=== PATIENT | female | born 1995 | race Caucasian/White ===

== ENCOUNTER 2017-01-18 22:48 | Emergency (ER) | payer MEDICAID ==
[2017-01-18 23:04] VITALS: BP 121/75
--- NOTE | 2017-01-18 23:22 | EDM.PDOC ---
ED HPI GENERAL MEDICAL PROBLEM - General Chief Complaint: Gastrointestinal Problem Stated Complaint: BLEEDING Time Seen by Provider: 01/18/17 22:58 Source of Information: Reports: Patient, Family History Limitations: Reports: No Limitations - History of Present Illness INITIAL COMMENTS - FREE TEXT/NARRATIVE: Pt had a rectal bleed at work today, she has hemorrhoids for 3 years pt refuded rectal exam, no N/V/D or dizziness or any other acute medical issues Onset: Unknown/Unsure Onset Date: 01/18/17 Onset Time: 17:00 Duration: Intermittent Location: Reports: Other (rectal bleed) Quality: Reports: Other (no pain, 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) Improves with: Reports: None Worsens with: Reports: None Context: Reports: Other (Hemmorrhides for 3 years) Associated Symptoms: Reports: No Other Symptoms Rectal Pain Score (Numeric/FACES): 6 - Related Data Allergies Allergy/AdvReac Type Severity Reaction Status Date / Time latex Allergy Redness Verified 01/18/17 22:57 Home Meds: Home Meds NK [No Known Home Meds] 01/18/17 [History] Past Medical History Gastrointestinal History: Reports: 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: Social & Family History - Tobacco Use Smoking Status *Q: Current Every Day Smoker Years of Tobacco use: 4 Packs/Tins Daily: 1 - Caffeine Use Caffeine Use: Reports: Coffee - Recreational Drug Use Recreational Drug Use: Yes Recreational Drug Type: Reports: Marijuana/Hashish Recreational Drug Use Frequency: Monthly ED ROS GENERAL - Review of Systems Review Of Systems: See Below Constitutional: Reports: No Symptoms HEENT: Reports: No Symptoms Respiratory: Reports: No Symptoms Cardiovascular: Reports: No Symptoms Endocrine: Reports: No Symptoms GI/Abdominal: Reports: No Symptoms : Reports: No Symptoms Musculoskeletal: Reports: No Symptoms Skin: Reports: No Symptoms Neurological: Reports: No Symptoms Psychiatric: Reports: No Symptoms Hematologic/Lymphatic: Reports: No Symptoms Immunologic: Reports: No Symptoms ED EXAM, GI/ABD - Physical Exam Exam: See Below Exam Limited By: No Limitations General Appearance: Alert, WD/WN, No Apparent Distress Eyes: Bilateral: Normal Appearance Ears: Normal External Exam Nose: Normal Inspection Throat/Mouth: Normal Inspection, Normal Lips, Normal Teeth, Normal Gums Head: Atraumatic, Normocephalic Neck: Normal Inspection, Supple, Non-Tender, Full Range of Motion Respiratory/Chest: No Respiratory Distress, Lungs Clear, Normal Breath Sounds Cardiovascular: Normal Peripheral Pulses, Regular Rate, Rhythm GI/Abdominal Exam: Other (refused rectal exam) (Female) Exam: Deferred Rectal (Female) Exam: Deferred (pt refused rectal exam) Back Exam: Normal Inspection Extremities: Normal Inspection Neurological: Alert, Oriented, CN II-XII Intact Psychiatric: Normal Affect Skin Exam: Warm, Dry, Intact Lymphatic: No Adenopathy Course - Vital Signs Text/Narrative:: Pt had a rectal bleed at work today, she has hemorrhoids for 3 years pt refused rectal exam, no N/V/D or dizziness or any other acute medical issues Pt refused rectal exam here in the ed. Plan: D/c home with F/U Last Recorded V/S: Last Vital Signs Temp 35.9 C 01/18/17 22:58 Pulse 92 01/18/17 22:58 Resp 14 01/18/17 22:58 BP 121/75 01/18/17 22:58 Pulse Ox 99 01/18/17 22:58 Departure - Departure Time of Disposition: 23:21 Disposition: Home, Self-Care 01 Condition: Good Clinical Impression: Bleeding external hemorrhoids - Discharge Information Referrals: Ernesto Basilio MD [Physician] - PCP,None [Primary Care Provider] - Forms: ED Department Discharge, ED Return to Work/School Form Additional Instructions: Please call Dr. Basilio in am for a clinic f/u, come back if worse.
== END 2017-01-18 23:30 | disposition home or self-care (01) ==
LOC: FB.ED 22:48
DX: K64.4 Residual hemorrhoidal skin tags (principal); F17.210 Nicotine dependence, cigarettes, uncomplicated; Z91.040 Latex allergy status
CPT/HCPCS: 99284

== ENCOUNTER 2017-03-01 14:16 | Emergency (ER) | payer BC ==
--- NOTE | 2017-03-01 14:39 | EDM.PDOC ---
ED HPI GENERAL MEDICAL PROBLEM - General Chief Complaint: Gastrointestinal Problem Stated Complaint: vomiting Time Seen by Provider: 03/01/17 14:16 Source of Information: Reports: Patient, Family History Limitations: Reports: No Limitations - History of Present Illness INITIAL COMMENTS - FREE TEXT/NARRATIVE: 21 y.o.w.f came to the ed due to painful defecation for >4 weeks, She has occ blood in her stool as well. No N/V/D or any other acute medical issues. Denied . BP 119/81 puls 81 Temp 36.4 RR 16 Pulse ox 100% Onset: Unknown/Unsure Onset Date: 02/02/17 Onset Time: 07:00 Duration: Day(s): Location: Reports: Abdomen Quality: Reports: Dull Severity: Mild Improves with: Reports: Rest Worsens with: Reports: Other (bowel movements) Context: Reports: Other Associated Symptoms: Reports: No Other Symptoms Right Upper Abdomen Pain Score (Numeric/FACES): 6 - Related Data Allergies Allergy/AdvReac Type Severity Reaction Status Date / Time acetaminophen Allergy Liver Verified 03/02/17 11:05 Problems latex Allergy Rash Verified 03/01/17 14:24 vancomycin Allergy Redness Verified 03/01/17 14:24 Home Meds: Home Meds NK [No Known Home Meds] 01/18/17 [History] Past Medical History Gastrointestinal History: Reports: 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: Social & Family History - Tobacco Use Smoking Status *Q: Current Every Day Smoker Years of Tobacco use: 4 Packs/Tins Daily: 1 - Caffeine Use Caffeine Use: Reports: Coffee - Recreational Drug Use Recreational Drug Use: Yes Recreational Drug Type: Reports: Marijuana/Hashish Recreational Drug Use Frequency: Monthly ED ROS GENERAL - Review of Systems Review Of Systems: See Below Constitutional: Reports: No Symptoms HEENT: Reports: No Symptoms Respiratory: Reports: No Symptoms Cardiovascular: Reports: No Symptoms Endocrine: Reports: No Symptoms GI/Abdominal: Reports: Abdominal Pain : Reports: No Symptoms Musculoskeletal: Reports: No Symptoms Skin: Reports: No Symptoms Neurological: Reports: No Symptoms Psychiatric: Reports: No Symptoms Hematologic/Lymphatic: Reports: No Symptoms Immunologic: Reports: No Symptoms ED EXAM, GI/ABD - Physical Exam Exam: See Below Exam Limited By: No Limitations General Appearance: Alert, WD/WN, No Apparent Distress Eyes: Bilateral: Normal Appearance Ears: Normal External Exam Nose: Normal Inspection Throat/Mouth: Normal Inspection Head: Atraumatic, Normocephalic Neck: Normal Inspection, Supple Respiratory/Chest: No Respiratory Distress Cardiovascular: Normal Peripheral Pulses, Regular Rate, Rhythm GI/Abdominal Exam: Normal Bowel Sounds, Soft, Other (painful defacation ) (Female) Exam: Deferred Rectal (Female) Exam: Deferred Back Exam: Normal Inspection Extremities: Normal Inspection Neurological: Alert, Oriented, CN II-XII Intact, Normal Cognition, Normal Gait Psychiatric: Normal Affect, Normal Mood Skin Exam: Warm, Dry, Intact, Normal Color, No Rash Lymphatic: No Adenopathy Course - Vital Signs Text/Narrative:: 21 y.o.w.f came to the ed due to painful defecation for >4 weeks, She has occ blood in her stool as well. No N/V/D or any other acute medical issues. Denied . BP 119/81 puls 81 Temp 36.4 RR 16 Pulse ox 100% PE: Nl PE Labs: UA for UTI and CBC nl BMP Nl Impression: Hematochezia, painful defecation Tx: None needed in the ed Plan: D/C with instructions Last Recorded V/S: Last Vital Signs Temp 36.7 C 03/01/17 14:20 Pulse 70 03/01/17 16:29 Resp 16 03/01/17 16:29 BP 126/82 03/01/17 16:29 Pulse Ox 100 03/01/17 16:29 - Orders/Labs/Meds Labs: Laboratory Tests 03/01/17 03/01/17 03/01/17 Range/Units 14:35 14:35 14:40 WBC 10.6 (4.5-12.0) X10-3/uL RBC 4.56 (3.23-5.20) x10(6)uL Hgb 13.5 (11.5-15.5) g/dL Hct 39.3 (30.0-51.3) % MCV 86.1 (80-96) fL MCH 29.5 (27.7-33.6) pg MCHC 34.3 (32.2-35.4) g/dL RDW 13.3 (11.5-15.5) % Plt Count 351 (125-369) X10(3)uL MPV 8.2 (7.4-10.4) fL Neut % (Auto) 65.5 (46-82) % Lymph % (Auto) 25.6 (13-37) % [place] % (Auto) 6.1 (4-12) % Eos % (Auto) 2 (1.0-5.0) % Baso % (Auto) 1 (0-2) % Neut # (Auto) 7.0 (1.6-8.3) # Lymph # (Auto) 2.7 (0.6-5.0) # [place] # (Auto) 0.6 (0.0-1.3) # Eos # (Auto) 0.2 (0.0-0.8) # Baso # (Auto) 0.1 (0.0-0.2) # Sodium (135-145) mmol/L Potassium (3.5-5.3) mmol/L Chloride (100-110) mmol/L Carbon Dioxide (23-29) mmol/L BUN (5-20) mg/dL Creatinine (0.6-1.3) mg/dL Est Cr Clr Drug Dosing mL/min Estimated GFR (MDRD) (>60) BUN/Creatinine Ratio (9-20) Glucose (80-116) mg/dL Calcium (8.6-10.2) mg/dL Total Bilirubin (0.1-1.3) mg/dL Direct Bilirubin (0.1-0.2) mg/dL AST (5-27) IU/L ALT (14-26) IU/L Alkaline Phosphatase (56-112) IU/L Total Protein (6.0-8.0) g/dL Albumin (3.5-5.2) g/dL Urine Color Yellow (YELLOW) Urine Appearance Slightly cloudy (CLEAR) Urine pH 8.0 H (5.0-6.5) Ur Specific [place] 1.015 (1.010-1.025) Urine Protein Negative (NEGATIVE) mg/dL Urine Glucose (UA) Normal (NEGATIVE) mg/dL Urine Ketones Negative (NEGATIVE) mg/dL Urine Occult Blood Negative (NEGATIVE) Urine Nitrite Negative (NEGATIVE) Urine Bilirubin Negative (NEGATIVE) Urine Urobilinogen Normal (NEGATIVE) mg/dL Ur Leukocyte Esterase Negative (NEGATIVE) Urine RBC Not seen (0) Urine WBC 0-5 (0) Ur Squamous Epith Cells Moderate H (NS,R,O) Amorphous Sediment Moderate Urine Bacteria Moderate H (NS) Urine HCG, Qual Negative (NEGATIVE) 03/01/17 Range/Units 14:40 WBC (4.5-12.0) X10-3/uL RBC (3.23-5.20) x10(6)uL Hgb (11.5-15.5) g/dL Hct (30.0-51.3) % MCV (80-96) fL MCH (27.7-33.6) pg MCHC (32.2-35.4) g/dL RDW (11.5-15.5) % Plt Count (125-369) X10(3)uL MPV (7.4-10.4) fL Neut % (Auto) (46-82) % Lymph % (Auto) (13-37) % [place] % (Auto) (4-12) % Eos % (Auto) (1.0-5.0) % Baso % (Auto) (0-2) % Neut # (Auto) (1.6-8.3) # Lymph # (Auto) (0.6-5.0) # [place] # (Auto) (0.0-1.3) # Eos # (Auto) (0.0-0.8) # Baso # (Auto) (0.0-0.2) # Sodium 138 (135-145) mmol/L Potassium 3.7 (3.5-5.3) mmol/L Chloride 106 (100-110) mmol/L Carbon Dioxide 27 (23-29) mmol/L BUN 7 (5-20) mg/dL Creatinine 0.8 (0.6-1.3) mg/dL Est Cr Clr Drug Dosing 113.16 mL/min Estimated GFR (MDRD) > 60 (>60) BUN/Creatinine Ratio 8.8 L (9-20) Glucose 107 (80-116) mg/dL Calcium 9.1 (8.6-10.2) mg/dL Total Bilirubin 1.3 (0.1-1.3) mg/dL Direct Bilirubin 0.2 (0.1-0.2) mg/dL AST 14 (5-27) IU/L ALT 12 L (14-26) IU/L Alkaline Phosphatase 49 L (56-112) IU/L Total Protein 6.9 (6.0-8.0) g/dL Albumin 4.1 (3.5-5.2) g/dL Urine Color (YELLOW) Urine Appearance (CLEAR) Urine pH (5.0-6.5) Ur Specific [place] (1.010-1.025) Urine Protein (NEGATIVE) mg/dL Urine Glucose (UA) (NEGATIVE) mg/dL Urine Ketones (NEGATIVE) mg/dL Urine Occult Blood (NEGATIVE) Urine Nitrite (NEGATIVE) Urine Bilirubin (NEGATIVE) Urine Urobilinogen (NEGATIVE) mg/dL Ur Leukocyte Esterase (NEGATIVE) Urine RBC (0) Urine WBC (0) Ur Squamous Epith Cells (NS,R,O) Amorphous Sediment Urine Bacteria (NS) Urine HCG, Qual (NEGATIVE) Departure - Departure Time of Disposition: 16:36 Disposition: Home, Self-Care 01 Condition: Good Clinical Impression: Hematochezia - Discharge Information Referrals: PCP,None [Primary Care Provider] - Logan Lilly MD [Physician] - Forms: ED Department Discharge, ED Return to Work/School Form Additional Instructions: Please follow up with Dr. Lilly as needed. Please come back if your symptoms get worse acutely.
[2017-03-01 16:31] VITALS: BP 126/82
== END 2017-03-01 16:42 | disposition home or self-care (01) ==
LOC: FB.ED 14:16
DX: K92.1 Melena (principal); F17.210 Nicotine dependence, cigarettes, uncomplicated; Z88.1 Allergy status to other antibiotic agents; Z88.6 Allergy status to analgesic agent; Z91.040 Latex allergy status
CPT/HCPCS: 36415; 80048; 80076; 81001; 81025; 85025; 99284

== ENCOUNTER 2017-03-02 10:53 | Emergency (ER) | payer BC ==
[2017-03-02 11:09] VITALS: BP 123/73
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
== END 2017-03-02 13:30 | disposition home or self-care (01) ==
LOC: FB.ED 10:53
DX: Z00.00 Encounter for general adult medical examination without abnormal findings (principal); F17.210 Nicotine dependence, cigarettes, uncomplicated; Z88.1 Allergy status to other antibiotic agents; Z88.6 Allergy status to analgesic agent; Z91.040 Latex allergy status; M54.5 Low back pain
CPT/HCPCS: 72100; 99281

== ENCOUNTER 2017-07-08 12:23 | Emergency (ER) | payer BC ==
[2017-07-08] MEDS ORDERED: Sodium Chloride 0.9% 1,000 ML IV ONE (13:40)
[2017-07-08] MEDS: Ondansetron 4 MG Tab.DIS PO SCH (14:15)
[2017-07-08] MEDS: Dextrose 5%-Lactated Ringers 1,000 ML IV SCH (14:25)
[2017-07-08] MEDS: Sodium Chloride 0.9% 1,000 ML IV SCH ×2 (15:26→17:02)
[2017-07-08 18:04] VITALS: BP 112/75
--- NOTE | 2017-07-11 05:25 | ER ---
DATE SEEN: 07/08/2017 Urinalysis on 07/08/2017, had moderate bacteria and moderate squamous epithelial cells, few mucus. Laboratory have chosen to culture as it met their criteria and the culture has turned out to have 100,000 colonies E. coli. ASSESSMENT: 1. This should be defined as asymptomatic bacteriuria. The Infectious Disease Society of [place] does not sanction use of antibiotics for asymptomatic bacteriuria. 2. Since it appears that this specimen was a soiled specimen with moderate squamous epithelial cells and moderate bacteria noted, the culture is probably factitious and does not require antibiotic treatment. It is remotely possible the patient could get UTI symptoms later that require treatment at later date. At present, I have chosen not to treat the patient with antibiotic because of the above. She will be following with her doctor in a week or less than a week. At that time, we will repeat urinalysis, a good clean-catch urine would be optimal to verify she does not have a urinary tract infection. /[id number] ROBBIE/MIKE ESCOBAR
--- NOTE | 2017-07-12 13:54 | ER ---
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 Last night, she drank 2+ drinks and lost consciousness. She blacked out. She has chronic low back pain. She vomited "50 times since last night." She feels dry. Her chief complaint is "alcohol poisoning." Someone drove her home. She left her home. She had stomach pain, onset approximately 1900 last night. She felt dizzy. No history of pancreatitis. She has had liver failure when she was 18 years old, after a Tylenol overdose. She is worried this might be liver enzyme abnormality. She did not hit her head. No history of upper or lower extremity trauma, neck pain, or head trauma, but she feels that she has headache from drinking so much alcohol last night. CURRENT MEDICATIONS: None. ALLERGIES: Acetaminophen, latex, and vancomycin. PAST MEDICAL HISTORY: Notable for hematochezia and hemorrhoids in January and March of 2017. REVIEW OF SYSTEMS: HEENT: She has a headache. No compromise of vision. No blurry vision. No sinusitis, pharyngitis, or hearing changes. NECK: No neck complaints. LUNGS: No shortness of breath or cough. CHEST: No chest wall pain. HEART: No irregular heartbeat, diaphoresis, or increased weight gain or swelling of the lower extremities. ABDOMEN: As noted above. She had the "vomiting 50 times." BACK: Back pain is negative. GENITOURINARY: Negative. MUSCULOSKELETAL: Negative. She denies arthritis and myalgia. NEUROLOGIC: No history of seizures. Normally does not have any headaches. PSYCHIATRIC: Negative. Denies depression. PHYSICAL EXAMINATION: VITAL SIGNS: Blood pressure 123/78, heart rate 92, respirations 16, oxygen saturation 100%, and temperature 36.3 centigrade. CONSTITUTIONAL: The patient is lying in bed in a position with a blanket over her head. She complains of a headache. PERRLA intact. Eyegrounds: Normal appearance. EOMs are normal. Hearing is slightly decreased. TMs: Normal appearance. No tenderness to the scalp and face on palpation. No malocclusion. TMJs are negative. No thyromegaly. No tracheal tug. NECK: Nontender. LUNGS: Clear, without rales, rhonchi, or wheezes. HEART: S1 and S2. No murmur. No irregular rate and rhythm. ABDOMEN: Soft. No guarding. There is mild midepigastric abdominal discomfort. No CVA percussion tenderness. EXTREMITIES: Lower extremities are without edema. Deep tendon reflexes in upper and lower extremities are symmetrical, 1+, and normoactive. Cranial nerves 2 through 12 are intact. Oriented x3. Gait is appropriate. No past pointing. No pronator drift, and primary care md and muscle strength in upper and lower extremities are good. LABORATORY FINDINGS: White count 15,400, PMNs 87, lymphs 11, and monos 2, and platelets 451,000. Otherwise, a complete metabolic panel is normal, without liver enzyme elevation (she was concerned about liver enzyme elevation). Urine glucose is 100, but her serum glucose is normal at 102, and she has moderate epithelial cells and moderate bacteria. Alcohol is less than 0.03. DIAGNOSES: 1. Alcohol-induced dizziness and loss of consciousness, "blackout". 2. 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 3. Obesity. 4. No evidence for hepatitis or liver enzyme abnormalities. 5. Neutrophilic leukocytosis with thrombocythemia. EMERGENCY ROOM COURSE: The patient received 3 L of fluid and 1 of D5 lactated Ringer's (Accu-Chek was 80 mg) followed by 2 L of warm normal saline. The patient felt well. She felt much improved. The headache is markedly decreased, still has a trace of the latter. The patient is dismissed to follow up with doctor as needed, otherwise in a week. Avoid Tylenol or ibuprofen and use over- the-counter Pepcid as necessary. TIME SEEN: The patient was seen at 1320 hours. /[id number] ROBBIE/MIKE
== END 2017-07-08 18:02 | disposition home or self-care (01) ==
LOC: FB.ED 12:23
DX: D47.3 Essential (hemorrhagic) thrombocythemia (principal); D72.829 Elevated white blood cell count, unspecified; E66.9 Obesity, unspecified; F10.20 Alcohol dependence, uncomplicated; Z88.6 Allergy status to analgesic agent; Z91.040 Latex allergy status; Z88.1 Allergy status to other antibiotic agents; Z68.33 Body mass index [BMI] 33.0-33.9, adult
CPT/HCPCS: 36415; 80053; 81001; 82150; 82962; 85025; 87086; 87088; 87186; 96360; 96361; 99284; A9270; G0480; J7040; J7042

== ENCOUNTER 2017-09-10 12:47 | Emergency (ER) | payer BC ==
[2017-09-10 15:46] VITALS: BP 129/81
--- NOTE | 2017-09-12 10:10 | ER ---
DATE SEEN: 09/10/2017 CHIEF COMPLAINT: "I need STD evaluation." HISTORY OF PRESENT ILLNESS: This is a 22-year-old, who was seen by myself last on July 08, 2016, and she was noted to have Tylenol hepatitis from previous 18- year-old induced failure from overdose of Tylenol, chronic low back pain, and she was seen at that time on July 08 for "ethanol poisoning" even though blood alcohol was not elevated. She has mild obesity. At that time, she was treated with Tylenol. She was seen a month ago and treated with a shot (presumably Chlamydia and GC treatment). She has used [id number]-tht-[id number] nystatin intermittently. She has pain with intercourse, and she has a past medical history of allergic reaction to vancomycin; after having been tattooed, she had cellulitis and erythema in her left upper arm. She was treated with vancomycin and had red man syndrome with extensive total body itching and falling off her hair. Other past medical history: She has allergies and uses fluticasone for seasonal allergic rhinitis. Fluticasone nasal spray one in each nostril daily. ALLERGIES: Acetaminophen, latex, and vancomycin. CURRENT MEDICATIONS: Albuterol and fluticasone (Advair 100-50). REVIEW OF SYSTEMS: HEENT: Negative. No sores in her mouth. CARDIOVASCULAR: Negative. No chest pain. No shortness of breath or cough. GASTROINTESTINAL: She denies nausea, vomiting, diarrhea, constipation, blood in the stool, black tarry stool, or change of bowels. She has minimal suprapubic discomfort. : She has pain with intercourse. Greenish discharge. "Month or two ago it was not greenish." Mild foul odor. Postcoital pain/inflammation. The patient denies hemorrhoids. She denies pain or muscle aches in her body or recent fever. PAST MEDICAL HISTORY: Negative except for noted above. PHYSICAL EXAMINATION: VITAL SIGNS: Blood pressure 128/84, heart rate 78, respirations 18, oxygen saturation 100%, temperature is 36.8 degrees centigrade, BMI is 33.5 kg/m2. Examination with nurse present in the room, I examined the patient. CONSTITUTIONAL: The patient is overweight. Very pleasant and very appropriate. HEENT: Without abnormality. Pharynx negative. No lesions noted. NECK: No cervical adenopathy. No thyromegaly. LUNGS: Clear without rales, rhonchi, or wheezes. HEART: S1 and S2. No irregular rate and rhythm. ABDOMEN: Soft. Mild suprapubic discomfort. No masses noted. No striae noted. No inguinal adenopathy. No hernia. EXTERNAL GENITALIA: Normal to inspection. Vaginal exam with speculum today demonstrated cervix has a bumpy surface (condyloma acuminatum), but they are not billiform in character, not pointed, but they are round and bumpy in quality. No vesicles noted. No lesions noted. Trace of blood noted in the endocervix. LABORATORY DATA: Trich, yeast, GC, condyloma test, and urinalysis vaginalis studies performed. Pending results. The patient took a picture with her camera. She can use this for her doctor. Urinalysis was normal. Other tests are pending. DIAGNOSES: 1. Haemophilus vaginalis, Gardnerella vaginitis. 2. Obesity, mild. 3. Vancomycin allergy. 4. Age 18, Tylenol overdose resulted in liver failure and hepatitis, which is stable. 5. Failure to respond to self-medication of [id number]-[id number] medicines of nystatin of her vaginal discharge. 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 She may have HPV virus with this. Of those type 6 and 11 are considerd gential warts and 16 and 18 can cause anal cancer. At this point,what she has is undetermined, but is considered HPV. She does not appear to have herpes. Result is pending. She had moderate bacteria. She does not have any suggestion of enzyme abnormality. The latter suggests poor urine collection technique and does not warrant a culture at this point. However, she was seen in June and had the same. I think because of this we will do a culture, even though there is suggestion, it is asymptomatic bacteria. /[id number] ROBBIE/MIKE ESCOBAR
[2017-09-14 01:11] LABS: CHLAMYDIA TRACHOMATIS, NAA Negative (Negative); NEISSERIA GONORRHOEAE, NAA Negative (Negative)
== END 2017-09-10 14:29 | disposition home or self-care (01) ==
LOC: FB.ED 12:47
DX: N76.0 Acute vaginitis (principal); B96.89 Other specified bacterial agents as the cause of diseases classified elsewhere; E66.9 Obesity, unspecified; Z88.1 Allergy status to other antibiotic agents; Z91.040 Latex allergy status; Z88.6 Allergy status to analgesic agent; Z87.19 Personal history of other diseases of the digestive system; Z68.33 Body mass index [BMI] 33.0-33.9, adult
CPT/HCPCS: 81001; 87210; 87491; 87591; 99283

== ENCOUNTER 2017-10-29 08:51 | Emergency (ER) | payer BC ==
[2017-10-29] MEDS ORDERED: Lidocaine 2% 20 ML MDV INFILT ONE (08:52)
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
[2017-10-29 19:37] VITALS: BP 144/83
== END 2017-10-29 09:40 | disposition home or self-care (01) ==
LOC: FB.ED 08:51
DX: S81.812A Laceration without foreign body, left lower leg, initial encounter (principal); W26.9XXA Contact with unspecified sharp object(s), initial encounter; Z91.040 Latex allergy status; Z88.1 Allergy status to other antibiotic agents
CPT/HCPCS: 12001; 99283

== ENCOUNTER 2023-05-16 03:55 | Emergency (ER) | payer MEDICAID ==
[2023-05-16] MEDS ORDERED: Ondansetron 4 MG Tab.DIS PO ONE (04:31)
[2023-05-16 06:00] LABS: INFLUENZA A NAA NEGATIVE (NEGATIVE); INFLUENZA B NAA POSITIVE (NEGATIVE)
[2023-05-16 06:03] LABS: CORONAVIRUS COVID-19 NAA NEGATIVE (NEGATIVE)
[2023-05-16 06:42] VITALS: BP 129/76; PULSE 88
== END 2023-05-16 06:40 | disposition home or self-care (01) ==
LOC: MERGE 03:55 → FB.ED 03:55
DX: J10.1 Influenza due to other identified influenza virus with other respiratory manifestations (principal); Z20.822 Contact with and (suspected) exposure to COVID-19; Z79.899 Other long term (current) drug therapy; Z88.1 Allergy status to other antibiotic agents; Z91.040 Latex allergy status
CPT/HCPCS: 0240U; 99283; 99284; Q0162